=== PATIENT | male | born 1955 ===

== ENCOUNTER → 2017-07-22 | Outpatient (CLI) | payer MEDICARE, OTHER | LOC: WOUNDCARE 12:44 | PROVIDERS: ATTEND Surgery | DX: I70.232 Atherosclerosis of native arteries of right leg with ulceration of calf (principal); I87.333 Chronic venous hypertension (idiopathic) with ulcer and inflammation of bilateral lower extremity; L97.212 Non-pressure chronic ulcer of right calf with fat layer exposed; L97.221 Non-pressure chronic ulcer of left calf limited to breakdown of skin; I89.0 Lymphedema, not elsewhere classified; F03.90 Unspecified dementia, unspecified severity, without behavioral disturbance, psychotic disturbance, mood disturbance, and anxiety; I50.9 Heart failure, unspecified; L22 Diaper dermatitis | CPT/HCPCS: 11042; 97597 ==

== ENCOUNTER → 2017-08-03 | Outpatient (CLI) | payer MEDICARE | LOC: WOUNDCARE 11:13 | PROVIDERS: ATTEND Surgery | DX: I87.333 Chronic venous hypertension (idiopathic) with ulcer and inflammation of bilateral lower extremity (principal); L97.212 Non-pressure chronic ulcer of right calf with fat layer exposed; I89.0 Lymphedema, not elsewhere classified; F03.90 Unspecified dementia, unspecified severity, without behavioral disturbance, psychotic disturbance, mood disturbance, and anxiety; I50.9 Heart failure, unspecified | CPT/HCPCS: 11042 ==

== ENCOUNTER → 2017-08-10 | Outpatient (CLI) | payer MEDICARE | LOC: WOUNDCARE 11:05 | PROVIDERS: ATTEND Surgery | DX: I87.333 Chronic venous hypertension (idiopathic) with ulcer and inflammation of bilateral lower extremity (principal); L97.212 Non-pressure chronic ulcer of right calf with fat layer exposed; I89.0 Lymphedema, not elsewhere classified; F03.90 Unspecified dementia, unspecified severity, without behavioral disturbance, psychotic disturbance, mood disturbance, and anxiety; I50.9 Heart failure, unspecified | CPT/HCPCS: 99212 ==